=== PATIENT | female | born 1955 | race Caucasian/White ===

== ENCOUNTER 2021-03-26 15:08 | Emergency (ER) | payer MEDICARE, BC ==
[2021-03-26] MEDS ORDERED: Metoprolol Tartrate 25 MG Tab PO ONE (16:58)
--- NOTE | 2021-03-26 16:59 | EDM.PDOC ---
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 She has had some borderline bp problems in the past but recently has not been on medication. She has been feeling slightly anxious recently and has notd that her bp has been consistently up. She has not had dizziness or chest pain. Onset: Gradual Duration: Day(s): Location: Reports: Other ( bp elevated and an anxious uneasy feeling. ) Associated Symptoms: Reports: No Other Symptoms - Related Data Allergies Allergy/AdvReac Type Severity Reaction Status Date / Time nitrofurantoin Allergy Hives Verified 03/26/21 15:34 [From Macrodantin] Past Medical History HEENT History: Reports: Other (See Below) Other HEENT History: legally blind Cardiovascular History: Reports: High Cholesterol, Hypertension Genitourinary History: Reports: UTI, Recurrent [employer] History: Reports: Musculoskeletal History: Reports: Osteoporosis Psychiatric History: Reports: ADHD Oncologic (Cancer) History: Reports: Squamous Cell Carcinoma Social & Family History - Tobacco Use Tobacco Use Status *Q: Never Tobacco User - Caffeine Use Caffeine Use: Reports: None - Recreational Drug Use Recreational Drug Use: No ED ROS GENERAL - Review of Systems Review Of Systems: See Below Constitutional: Reports: No Symptoms HEENT: Reports: No Symptoms Respiratory: Reports: No Symptoms Cardiovascular: Reports: No Symptoms, Other ( bp elevated. ) Endocrine: Reports: No Symptoms GI/Abdominal: Reports: No Symptoms : Reports: No Symptoms Musculoskeletal: Reports: No Symptoms Skin: Reports: No Symptoms Neurological: Reports: No Symptoms Psychiatric: Reports: Anxiety ED EXAM, GENERAL - Physical Exam Exam: See Below Free Text/Narrative:: pt arrived with a history this week of the bp being elevated. She has had a anxious feeling alot of the time. This is unusual for her. Exam Limited By: No Limitations General Appearance: Alert, Anxious, Moderate Distress Ears: Normal TMs Nose: Normal Inspection Throat/Mouth: Normal Inspection Head: Atraumatic Neck: Normal Inspection Respiratory/Chest: No Respiratory Distress Cardiovascular: Regular Rate, Rhythm GI/Abdominal: Soft (Female) Exam: Deferred Rectal (Female) Exam: Deferred Back Exam: Normal Inspection Extremities: Normal Inspection Neurological: Alert, Oriented, Normal Cognition Psychiatric: Anxious Course - Vital Signs Last Recorded V/S: Last Vital Signs Temp 36.6 C 03/26/21 15:27 Pulse 82 03/26/21 17:10 Resp 15 03/26/21 16:06 BP 149/74 H 03/26/21 17:10 Pulse Ox 99 03/26/21 16:57 - Orders/Labs/Meds Labs: Laboratory Tests 03/26/21 03/26/21 Range/Units 16:25 16:25 WBC 7.5 (4.5-11.0) K/uL RBC 4.53 (3.30-5.50) M/uL Hgb 14.4 (12.0-15.0) g/dL Hct 41.7 (36.0-48.0) % MCV 92 (80-98) fL MCH 32 H (27-31) pg MCHC 35 (32-36) % Plt Count 305 (150-400) K/uL Neut % (Auto) 70.6 H (36-66) % Lymph % (Auto) 21.0 L (24-44) % [place] % (Auto) 7.2 H (2-6) % Eos % (Auto) 0.5 L (2-4) % Baso % (Auto) 0.7 (0-1) % Sodium 145 (140-148) mmol/L Potassium 3.5 L (3.6-5.2) mmol/L Chloride 108 (100-108) mmol/L Carbon Dioxide 27 (21-32) mmol/L Anion Gap 13.5 (5.0-14.0) mmol/L BUN 14 (7-18) mg/dL Creatinine 0.8 (0.6-1.0) mg/dL Est Cr Clr Drug Dosing 60.56 mL/min Estimated GFR (MDRD) > 60 (>60) Glucose 96 (74-106) mg/dL Calcium 9.0 (8.5-10.1) mg/dL Total Bilirubin 0.4 (0.2-1.0) mg/dL AST 19 (15-37) U/L ALT 40 (12-78) U/L Alkaline Phosphatase 77 (46-116) U/L Total Protein 6.7 (6.4-8.2) g/dL Albumin 3.8 (3.4-5.0) g/dL Globulin 2.9 (2.3-3.5) g/dL Albumin/Globulin Ratio 1.3 (1.2-2.2) Meds: Medications Discontinued Medications Generic Name Dose Route Start Last Admin Trade Name Freq PRN Reason Stop Dose Admin Metoprolol Tartrate 12.5 mg 03/26/21 16:58 03/26/21 17:10 Metoprolol Tartrate 25 Mg Tab PO 03/26/21 16:59 25 mg ONETIME ONE Administration - Re-Assessments/Exams Free Text/Narrative Re-Assessment/Exam: 03/26/21 17:23 pt did have normal lab work. She was given metoprol 12.5 mg Departure - Departure Time of Disposition: 17:24 Disposition: Home, Self-Care 01 Condition: Fair Clinical Impression: Hypertension, Legally blind Instructions: Hypertension, Adult Referrals: HERIBERTO DO [Other] Forms: ED Department Discharge Care Plan Goals: push fluids, try to decrease salt intake, metoprol 25 mg 1/2 tab daily. keep appt with regular physian. send a copy of her lab work with her
== END 2021-03-26 17:49 | disposition home or self-care (01) ==
LOC: JP.ED 15:08
DX: H54.8 Legal blindness, as defined in USA (principal); I10 Essential (primary) hypertension; Z88.1 Allergy status to other antibiotic agents
CPT/HCPCS: 36415; 80053; 85025; 99283; A9270